=== PATIENT | female | born 1965 | race Caucasian/White ===

== ENCOUNTER 2018-06-18 10:22 | Emergency (ER) | payer MEDICAID ==
[~2018-06-18] VITALS: Ht 157.5 cm; Wt 67.0 kg
[2018-06-18 10:27] VITALS: BP 132/85; PULSE 82; RESP 20; Ht 157.5 cm; Wt 67.0 kg
[2018-06-18] MEDS ORDERED: ACETAMINOPHEN 500 MG TAB PO STA (12:37)
--- NOTE | 2018-06-18 12:55 | ERD ---
ER Documentation Chief Complaint Chief Complaint sore throat x 1 week HPI 53-year-old female presents with complaint of sore throat for the past week. States that when she eats she feels a burning sensation in her throat. Denies fevers, drooling, trismus, difficulty swallowing, muffled voice, difficulty breathing, rash, or neck stiffness. ROS All systems reviewed and are negative except as per history of present illness. Allergies Allergies: Coded Allergies: No Known Allergy (Unverified , 06/18/18) PMhx/Soc Medical and Surgical Hx: pt denies Medical Hx, pt denies Surgical Hx Hx Alcohol Use: No Hx Substance Use: No Hx Tobacco Use: No FmHx Family History: No diabetes, No coronary disease, No other Physical Exam Vitals Vital Signs Date Temp Pulse Resp B/P (MAP) Pulse Ox O2 O2 Flow FiO2 Time Delivery Rate 06/18/18 98.8 82 20 132/85 96 10:27 (101) Physical Exam Const: No acute distress Head: Atraumatic Eyes: Normal Conjunctiva ENT: Normal External Ears, Nose and Mouth. Tonsils are moderately edematous and erythematous bilaterally with no exudates noted. Uvula is midline. There are no peritonsillar masses noted. No drooling noted. Neck: Full range of motion. No meningismus. Resp: Clear to auscultation bilaterally Cardio: Regular rate and rhythm, no murmurs Abd: Soft, non tender, non distended. Normal bowel sounds Skin: No petechiae or rashes Back: No midline or flank tenderness Ext: No cyanosis, or edema Neur: Awake and alert Psych: Normal Mood and Affect Results 24 hrs Current Medications Medications Dose Sig/Nneka Start Time Status Last (Trade) Ordered Route PRN Stop Time Admin Dose Reason Admin 1,000 mg ONCE STAT 06/18/18 DC 06/18/18 Acetaminophen PO 12:37 06/18/18 12:48 (Tylenol 12:39 Tab) Procedures/MDM Rapid strep was performed and results were negative. Patient most likely suffered from GERD. Patient placed on 14-day trial of Pepcid to see if it resolves her symptoms. I have low suspicion for epiglottitis, peritonsilar abscess, ludwigs angina, retropharyngeal abscess, or other emergent etiologies based on patients exam and history. Patient discharged with strict ER precautions. Patient advised to follow up with PMD. All questions answered at discharge. Departure Diagnosis: Primary Impression: Sore throat Additional Impression: GERD (gastroesophageal reflux disease) Condition: Stable GLORIA CARMICHAEL Jun 18, 2018 12:55
[2018-06-18] MEDS ORDERED: FAMO-96 PO (12:56)
[2018-06-18] MEDS ORDERED: IBUP-1561 PO (12:56)
== END 2018-06-18 14:11 | disposition home or self-care (01) ==
LOC: FTE 10:22
DX: J02.9 Acute pharyngitis, unspecified (principal); K21.9 Gastro-esophageal reflux disease without esophagitis
CPT/HCPCS: 87880; Z7502; Z7610; 99283